=== PATIENT | male | born 1955 | race Caucasian/White ===

== ENCOUNTER 2017-03-08 18:47 | Inpatient (IN) | payer BC ==
[~2017-03-08] VITALS: Ht 165.1 cm; Wt 95.3 kg
[~2017-03-08 18:47] MED LIST: ACYCLOVIR400 MG PO; AMBIEN5 M1 PO; AREDIA IV; ATIVAN0.5 MG PO; CALCIUM CA1250 MG/5 PO; CALCIUM PO; COMPAZINE10 MG PO; CYCLOBENZAPRINE10 MG PO; CYTOXAN500 MG IV; DECADRON4 MG PO; DURAGESIC75 MCG TD; ELOCON 0.1% CRE15 GM TP; FEROSUL325 MG PO; FLUCONAZOLE100 M1 PO; FLUCONAZOLE100 MG PO; GUMMI BEAR MUL1 EACH PO; HYDROCODON-ACE1 EAC7 PO; K-DUR10 MEQ PO; KENLAOG,ARISTOC60 ML PO; LEVOTHROID,S0.125 MG PO; LEVOTHYROXINE50 MCG PO; LOVENOX40 MG/0.4 PO; LOVENOX40 MG/0.4 SC; MEDROL16 MG PO; MELATONIN5 MG SL; NEBUPENT300 MG IH; NEXIUM40 MG PO; OMEPRAZOLE20 MG PO; ONDANSETRON HCL8 MG PO; OXYCODONE5 MG PO; PAMIDRONATE IV; PERI-COLACE TA1 EACH PO; PHENERGAN12.5 M1 PO; PROVENTIL,2.5 MG/3 M IH; REVLIMID15 MG PO; THALOMID100 MG PO; VELCADE1 MG/ML IV; VITAMIN B-121000 MC1 SL; VITAMIN D5000 UNIT PO; ZOFRAN ODT8 MG PO; ZOVIRAX400 MG PO; [UNRECOGNIZED DRUG - OTHER] PO
[2017-03-08 20:39] LABS: HEMATOCRIT 31.7 % (38.0-50.0); MCHC 30.3 G/DL (30.0-36.0); MCV 95.8 FL (86-99); MEAN PLAT.VOLUME 10.7 uM^3 (9.0-12.4); NRBC (%) 0.3 /100 WBC (0-0); PLATELET COUNT 198 K/uL (156-360); RBC DIS.WIDTH-CV 18.6 % (11.8-14.6); RBC DIS.WIDTH-SD 63.4 % (39-53); RED BLOOD COUNT 3.31 M/uL (4.00-5.50)
[2017-03-08 20:53] LABS: CHLORIDE 110 mEq/L (99-109); POTASSIUM 3.5 mEq/L (3.7-5.4); SODIUM 140 mEq/L (136-147)
[2017-03-08 20:54] LABS: GLUCOSE 125 mg/dL (70-99)
[2017-03-08 20:56] LABS: INFLUENZA A VIRAL ANTIGEN NEGATIVE; INFLUENZA B VIRAL ANTIGEN NEGATIVE
[2017-03-08 20:56] LABS: ANION GAP 11 MEQ/L (2-14)
[2017-03-08 20:58] LABS: GFR ESTIMATE (CALCULATED) > 59 mL/min/
[2017-03-08 20:59] LABS: UREA NITROGEN (BUN) 19 mg/dL (9-23)
[2017-03-08 21:02] LABS: TROP-I INTERPRETATION NEGATIVE; TROPONIN-I < 0.01 ng/mL (0.0-0.30)
[2017-03-08] MEDS ORDERED: [UNRECOGNIZED DRUG - OTHER] (22:02)
[2017-03-08] MEDS ORDERED: VITAMIN D35000 UNIT PO (22:03)
[2017-03-08] MEDS ORDERED: FLEXERIL10 MG PO (22:04)
[2017-03-08] MEDS ORDERED: LOVENOX40 MG/0.4 SC (22:06)
[2017-03-08] MEDS ORDERED: CYTOXAN500 MG IV (22:06)
[2017-03-08] MEDS ORDERED: LOPERAMIDE2 MG PO (22:11)
[2017-03-08] MEDS ORDERED: MAG-OXIDE400 MG PO (22:13)
[2017-03-08] MEDS ORDERED: PERCOCET 5/31 TABLET PO (22:18)
[2017-03-08] MEDS ORDERED: POMALYST2 MG PO (22:23)
[2017-03-08] MEDS ORDERED: K-DUR10 MEQ PO (22:24)
[2017-03-08] MEDS ORDERED: COMPAZINE10 MG PO (22:25)
[2017-03-08] MEDS ORDERED: ZOLPIDEM TARTRA10 MG PO (22:26)
[2017-03-09] VITALS (21 sets, daily range): BP systolic 96–139; BP diastolic 60–90
[2017-03-09 00:45] LABS: CHLORIDE 112 mEq/L (99-109); POTASSIUM 3.4 mEq/L (3.7-5.4); SODIUM 140 mEq/L (136-147)
[2017-03-09 00:48] LABS: GLUCOSE 125 mg/dL (70-99)
[2017-03-09 00:49] LABS: ANION GAP 11 MEQ/L (2-14); TOTAL BILIRUBIN 0.4 mg/dL (0.0-1.0)
[2017-03-09 00:50] LABS: HEMATOCRIT 26.1 % (38.0-50.0); MCH 29.3 PG (29.0-34.0); MCHC 29.9 G/DL (30.0-36.0); MCV 98.1 FL (86-99); MEAN PLAT.VOLUME 10.6 uM^3 (9.0-12.4); NRBC (%) 0.8 /100 WBC (0-0); PLATELET COUNT 160 K/uL (156-360); RBC DIS.WIDTH-CV 18.7 % (11.8-14.6); RBC DIS.WIDTH-SD 65.3 % (39-53); RED BLOOD COUNT 2.66 M/uL (4.00-5.50)
[2017-03-09 00:51] LABS: ALKALINE PHOSPHATASE 37 IU/L (3-129); GFR ESTIMATE (CALCULATED) 51 mL/min/
[2017-03-09 00:52] LABS: UREA NITROGEN (BUN) 21 mg/dL (9-23)
[2017-03-09 00:55] LABS: LIPASE 18 U/L (1.0-51.0)
[2017-03-09 02:00] LABS: EOSINOPHIL (%) 2.2 % (0-5); EOSINOPHIL COUNT 0.1 K/uL (0-0.3); HEMATOLOGY COMMENT 1 SMEAR COMPATIBLE; IMMATURE GRANULOCYTE (%) 3.2 % (0.0-0.7); IMMATURE GRANULOCYTE COUNT 0.2 K/uL; INSTRUMENT ABS NEUTROPHIL CT 4.7 K/uL; LYMPHOCYTE COUNT 0.2 K/uL (1.0-2.8); MONOCYTE (%) 13.2 % (3-12); MONOCYTE COUNT 0.8 K/uL (0-0.8); NEUTROPHIL (%) 77.6 % (45-76); NEUTROPHIL COUNT 4.7 K/uL (1.8-6.4)
[2017-03-09 02:45] LABS: METH RESISTANT S AUREUS PCR NEGATIVE (NEGATIVE)
[2017-03-09 02:50] LABS: PROBE CHECK PASS; SPECIMEN PROCESSING CONTROL PASS
[2017-03-09 06:07] LABS: HEMATOCRIT 26.3 % (38.0-50.0); MCH 28.6 PG (29.0-34.0); MCHC 29.3 G/DL (30.0-36.0); MCV 97.8 FL (86-99); NRBC (%) 0.6 /100 WBC (0-0); PLATELET COUNT 140 K/uL (156-360); RBC DIS.WIDTH-SD 65.3 % (39-53); RED BLOOD COUNT 2.69 M/uL (4.00-5.50); WHITE BLOOD COUNT 4.7 K/uL (4.1-10.2)
[2017-03-09 06:36] LABS: ALKALINE PHOSPHATASE 35 IU/L (3-129); ANION GAP 8 MEQ/L (2-14); CHLORIDE 115 MEQ/L (99-109); GFR ESTIMATE (CALCULATED) 55 mL/min/; GLUCOSE 98 mg/dL (70-99); MAGNESIUM 1.7 mg/dl (1.3-2.7); SAMPLE HEMOLYSIS CHECK 0; SAMPLE ICTERIC CHECK 0; SAMPLE LIPEMIA CHECK 0; SODIUM 143 MEQ/L (136-147); TOTAL BILIRUBIN 0.5 MG/DL (0.0-1.0); UREA NITROGEN (BUN) 18 mg/dL (9-23)
[2017-03-09 06:41] LABS: POTASSIUM 4.1 MEQ/L (3.7-5.4)
[2017-03-09 08:03] LABS: EOSINOPHIL (%) 2.3 % (0-5); EOSINOPHIL COUNT 0.1 K/uL (0-0.3); HEMATOLOGY COMMENT 1 SMEAR COMPATIBLE; IMMATURE GRANULOCYTE (%) 1.3 % (0.0-0.7); IMMATURE GRANULOCYTE COUNT 0.1 K/uL; INSTRUMENT ABS NEUTROPHIL CT 3.6 K/uL; LYMPHOCYTE COUNT 0.3 K/uL (1.0-2.8); MONOCYTE (%) 11.9 % (3-12); MONOCYTE COUNT 0.6 K/uL (0-0.8); NEUTROPHIL (%) 76.9 % (45-76); NEUTROPHIL COUNT 3.6 K/uL (1.8-6.4)
[2017-03-09 09:09] LABS: ADD MIUA? NO; BILIRUBIN NEGATIVE; BLOOD NEGATIVE; COLOR YELLOW ((YELLOW)); GLUCOSE (STRIP) NEGATIVE; KETONES NEGATIVE; LEUKOCYTES NEGATIVE; NITRITE NEGATIVE; PROTEIN (STRIP) NEGATIVE; SPECIFIC GRAVITY 1.015 (1.000-1.030); UROBILINOGEN 0.2 MG/DL (0.2-1.0)
[2017-03-10] VITALS: BP 126/76
[2017-03-10 01:10] VITALS: BP 135/77
[2017-03-10 07:19] VITALS: BP 120/61
[2017-03-10 07:25] LABS: EOSINOPHIL (%) 2.6 % (0-5); EOSINOPHIL COUNT 0.1 K/uL (0-0.3); HEMATOCRIT 27.8 % (38.0-50.0); IMMATURE GRANULOCYTE (%) 0.7 % (0.0-0.7); INSTRUMENT ABS NEUTROPHIL CT 2.8 K/uL; LYMPHOCYTE COUNT 0.5 K/uL (1.0-2.8); MCH 29.2 PG (29.0-34.0); MCHC 30.2 G/DL (30.0-36.0); MCV 96.5 FL (86-99); MEAN PLAT.VOLUME 11.3 uM^3 (9.0-12.4); MONOCYTE (%) 17.5 % (3-12); MONOCYTE COUNT 0.7 K/uL (0-0.8); NEUTROPHIL (%) 66.9 % (45-76); NEUTROPHIL COUNT 2.8 K/uL (1.8-6.4); NRBC (%) 0.5 /100 WBC (0-0); PLATELET COUNT 140 K/uL (156-360); RBC DIS.WIDTH-CV 19.1 % (11.8-14.6); RBC DIS.WIDTH-SD 67.4 % (39-53); RED BLOOD COUNT 2.88 M/uL (4.00-5.50); WHITE BLOOD COUNT 4.2 K/uL (4.1-10.2)
[2017-03-10 08:41] LABS: ALKALINE PHOSPHATASE 37 IU/L (3-129); ANION GAP 8 MEQ/L (2-14); CHLORIDE 112 MEQ/L (99-109); DIRECT BILIRUBIN 0.2 mg/dL (0.0-0.3); GFR ESTIMATE (CALCULATED) > 59 mL/min/; GLUCOSE 93 mg/dL (70-99); POTASSIUM 3.8 MEQ/L (3.7-5.4); SAMPLE HEMOLYSIS CHECK 0; SAMPLE ICTERIC CHECK 0; SAMPLE LIPEMIA CHECK 0; SODIUM 140 MEQ/L (136-147); TOTAL BILIRUBIN 0.6 MG/DL (0.0-1.0); UREA NITROGEN (BUN) 14 mg/dL (9-23)
[2017-03-10 15:34] VITALS: BP 117/68
[2017-03-10 23:28] VITALS: BP 118/72
[2017-03-11 03:03] LABS: C DIFF TOXIN NEGATIVE (NEGATIVE)
[2017-03-11 03:08] LABS: PROBE CHECK PASS; SPECIMEN PROCESSING CONTROL PASS
[2017-03-11 07:20] VITALS: BP 128/85
[2017-03-11 10:23] LABS: EOSINOPHIL (%) 7.7 % (0-5); EOSINOPHIL COUNT 0.3 K/uL (0-0.3); HEMATOCRIT 28.2 % (38.0-50.0); IMMATURE GRANULOCYTE (%) 0.5 % (0.0-0.7); INSTRUMENT ABS NEUTROPHIL CT 3.4 K/uL; LYMPHOCYTE COUNT 0.2 K/uL (1.0-2.8); MCH 29.1 PG (29.0-34.0); MCHC 29.8 G/DL (30.0-36.0); MCV 97.6 FL (86-99); MEAN PLAT.VOLUME 11.1 uM^3 (9.0-12.4); MONOCYTE (%) 8.6 % (3-12); MONOCYTE COUNT 0.4 K/uL (0-0.8); NEUTROPHIL (%) 78.5 % (45-76); NEUTROPHIL COUNT 3.4 K/uL (1.8-6.4); NRBC (%) 0.5 /100 WBC (0-0); PLATELET COUNT 125 K/uL (156-360); RBC DIS.WIDTH-SD 67.6 % (39-53); RED BLOOD COUNT 2.89 M/uL (4.00-5.50); WHITE BLOOD COUNT 4.3 K/uL (4.1-10.2)
[2017-03-11 10:44] LABS: ALKALINE PHOSPHATASE 36 IU/L (3-129); ANION GAP 10 MEQ/L (2-14); CHLORIDE 113 MEQ/L (99-109); GFR ESTIMATE (CALCULATED) > 59 mL/min/; GLUCOSE 84 mg/dL (70-99); POTASSIUM 4.1 MEQ/L (3.7-5.4); SAMPLE HEMOLYSIS CHECK 0; SAMPLE ICTERIC CHECK 0; SAMPLE LIPEMIA CHECK 0; SODIUM 142 MEQ/L (136-147); TOTAL BILIRUBIN 0.6 MG/DL (0.0-1.0); UREA NITROGEN (BUN) 10 mg/dL (9-23)
[2017-03-11 16:01] VITALS: BP 129/78
[2017-03-11 23:40] VITALS: BP 121/62
[2017-03-12 06:50] LABS: EOSINOPHIL (%) 15.2 % (0-5); EOSINOPHIL COUNT 0.4 K/uL (0-0.3); HEMATOCRIT 26.1 % (38.0-50.0); INSTRUMENT ABS NEUTROPHIL CT 1.4 K/uL; LYMPHOCYTE COUNT 0.4 K/uL (1.0-2.8); MCHC 29.9 G/DL (30.0-36.0); MONOCYTE (%) 22.4 % (3-12); MONOCYTE COUNT 0.7 K/uL (0-0.8); NEUTROPHIL (%) 46.9 % (45-76); NEUTROPHIL COUNT 1.4 K/uL (1.8-6.4); PLATELET COUNT 133 K/uL (156-360); RBC DIS.WIDTH-CV 18.8 % (11.8-14.6); RBC DIS.WIDTH-SD 65.8 % (39-53); RED BLOOD COUNT 2.69 M/uL (4.00-5.50)
[2017-03-12 06:53] LABS: WHITE BLOOD COUNT 2.9 K/uL (4.1-10.2)
[2017-03-12 07:11] LABS: ALKALINE PHOSPHATASE 36 IU/L (3-129); ANION GAP 6 MEQ/L (2-14); CHLORIDE 113 MEQ/L (99-109); GFR ESTIMATE (CALCULATED) > 59 mL/min/; GLUCOSE 83 mg/dL (70-99); SAMPLE HEMOLYSIS CHECK 0; SAMPLE ICTERIC CHECK 0; SAMPLE LIPEMIA CHECK 0; SODIUM 142 MEQ/L (136-147); UREA NITROGEN (BUN) 10 mg/dL (9-23)
[2017-03-12 07:16] LABS: TOTAL BILIRUBIN 0.4 MG/DL (0.0-1.0)
[2017-03-12 07:29] VITALS: BP 133/76
[2017-03-12] MEDS ORDERED: LOPERAMIDE2 MG PO (09:55)
== END 2017-03-12 12:16 | disposition home or self-care (01) | DRG 871 ==
LOC: EME 18:47 → EDOF 03-09 00:10 → 5EAST 03-09 00:10 → 4WEST 03-09 01:12 → 5EAST 03-10 01:02
PROVIDERS: Emergency Medicine; Hospitalist; Internal Medicine Nephrology
PROC: 5A09357 Assistance with Respiratory Ventilation, Less than 24 Consecutive Hours, Continuous Positive Airway Pressure (ICD-10-PCS; principal; 2017-03-09)
DX: A41.9 Sepsis, unspecified organism (principal); R65.21 Severe sepsis with septic shock; C90.00 Multiple myeloma not having achieved remission; E87.2 Acidosis; R11.10 Vomiting, unspecified; E86.0 Dehydration; R68.83 Chills (without fever); D64.9 Anemia, unspecified; G47.33 Obstructive sleep apnea (adult) (pediatric); Z53.20 Procedure and treatment not carried out because of patient's decision for unspecified reasons; R19.7 Diarrhea, unspecified; L98.9 Disorder of the skin and subcutaneous tissue, unspecified; L53.9 Erythematous condition, unspecified; R06.02 Shortness of breath; E87.6 Hypokalemia; E03.9 Hypothyroidism, unspecified; Z92.21 Personal history of antineoplastic chemotherapy; I25.2 Old myocardial infarction; Z87.891 Personal history of nicotine dependence; Z88.8 Allergy status to other drugs, medicaments and biological substances; Z95.9 Presence of cardiac and vascular implant and graft, unspecified
CPT/HCPCS: 71020; 80048; 80053; 80076; 80202; 81003; 82803; 83605; 83690; 83735; 83880; 84100; 84484; 85025; 85027; 87040; 87086; 87493; 87502; 87506; 87641; 93005; 94640; 94660; 99281; 99285; J1650; J2405; J2543; J2997; J3370; J3475; J3480; J7030; J7050

== ENCOUNTER 2017-04-24 13:12 | Inpatient (IN) | payer BC ==
[~2017-04-24] VITALS: Ht 165.1 cm; Wt 88.9 kg
[~2017-04-24 13:12] MED LIST changes: +FLEXERIL10 MG PO; +LOPERAMIDE2 MG PO; +MAG-OXIDE400 MG PO; +PERCOCET 5/31 TABLET PO; +POMALYST2 MG PO; +VITAMIN D35000 UNIT PO; +ZOLPIDEM TARTRA10 MG PO; +[UNRECOGNIZED DRUG - OTHER]
[2017-04-24 14:28] LABS: HEMATOCRIT 40.5 % (38.0-50.0); MCH 27.7 PG (29.0-34.0); MCHC 29.6 G/DL (30.0-36.0); MCV 93.5 FL (86-99); MEAN PLAT.VOLUME 11.6 uM^3 (9.0-12.4); NRBC (%) 0.9 /100 WBC (0-0); PLATELET COUNT 213 K/uL (156-360); RBC DIS.WIDTH-CV 20.1 % (11.8-14.6); RBC DIS.WIDTH-SD 68.1 % (39-53); RED BLOOD COUNT 4.33 M/uL (4.00-5.50); WHITE BLOOD COUNT 7.6 K/uL (4.1-10.2)
[2017-04-24 14:37] LABS: CHLORIDE 111 mEq/L (99-109); POTASSIUM 3.9 mEq/L (3.7-5.4); SODIUM 141 mEq/L (136-147)
[2017-04-24 14:40] LABS: GLUCOSE 138 mg/dL (70-99)
[2017-04-24 14:41] LABS: ANION GAP 16 MEQ/L (2-14)
[2017-04-24 14:42] LABS: TOTAL BILIRUBIN 0.9 mg/dL (0.0-1.0)
[2017-04-24 14:43] LABS: ALKALINE PHOSPHATASE 62 IU/L (3-129); GFR ESTIMATE (CALCULATED) > 59 mL/min/
[2017-04-24 14:45] LABS: UREA NITROGEN (BUN) 19 mg/dL (9-23)
[2017-04-24 14:47] LABS: CREATINE KINASE 81 IU/L (1-294); LIPASE 27 U/L (1.0-51.0); TOTAL CK 81 IU/L (1-294)
[2017-04-24 14:53] LABS: CK-MB 1.7 ng/mL (0.0-4.9)
[2017-04-24 16:35] LABS: ADD MIUA? YES; BILIRUBIN NEGATIVE; BLOOD NEGATIVE; COLOR YELLOW ((YELLOW)); GLUCOSE (STRIP) 150; KETONES NEGATIVE; LEUKOCYTES NEGATIVE; NITRITE NEGATIVE; PROTEIN (STRIP) 100; SPECIFIC GRAVITY 1.024 (1.000-1.030); UROBILINOGEN 0.2 MG/DL (0.2-1.0)
[2017-04-24] MEDS ORDERED: LOMOTIL TABLET1 EACH PO (16:44)
[2017-04-24 16:45] LABS: BACTERIA NONE SEEN /HPF; EPITHELIAL CELLS RARE /HPF; HYALINE CASTS 15-20 /LPF; MUCUS 2+ /LPF; RED BLOOD CELLS 0-5 /HPF (0-5); UCUL ADDED? NO; WHITE BLOOD CELLS 0-5 /HPF (0-5)
[2017-04-24] MEDS ORDERED: CALCIUM 500 MG1 EAC2 PO (16:48)
[2017-04-24] MEDS ORDERED: MIRALAX255 GM PO (16:49)
[2017-04-24 19:35] VITALS: BP 130/81
[2017-04-24 22:29] LABS: C DIFF TOXIN NEGATIVE (NEGATIVE)
[2017-04-24 22:33] LABS: PROBE CHECK PASS; SPECIMEN PROCESSING CONTROL PASS
[2017-04-24 23:07] VITALS: BP 120/76
[2017-04-25 04:06] VITALS: BP 120/83
[2017-04-25 07:38] LABS: ANION GAP 10 MEQ/L (2-14); CHLORIDE 108 MEQ/L (99-109); GFR ESTIMATE (CALCULATED) > 59 mL/min/; POTASSIUM 3.7 MEQ/L (3.7-5.4); SAMPLE HEMOLYSIS CHECK 0; SAMPLE ICTERIC CHECK 0; SAMPLE LIPEMIA CHECK 0; SODIUM 137 MEQ/L (136-147); UREA NITROGEN (BUN) 18 mg/dL (9-23)
[2017-04-25 07:39] LABS: GLUCOSE 100 mg/dL (70-99)
[2017-04-25 08:10] VITALS: BP 130/83
[2017-04-25 16:34] LABS: ANION GAP 7 MEQ/L (2-14); CHLORIDE 107 MEQ/L (99-109); GFR ESTIMATE (CALCULATED) > 59 mL/min/; GLUCOSE 97 mg/dL (70-99); POTASSIUM 3.5 MEQ/L (3.7-5.4); SAMPLE HEMOLYSIS CHECK 0; SAMPLE ICTERIC CHECK 0; SAMPLE LIPEMIA CHECK 0; SODIUM 135 MEQ/L (136-147); UREA NITROGEN (BUN) 14 mg/dL (9-23)
[2017-04-25 17:50] VITALS: BP 122/75
[2017-04-25 22:51] LABS: ANION GAP 12 MEQ/L (2-14); CHLORIDE 107 MEQ/L (99-109); MAGNESIUM 1.8 mg/dl (1.3-2.7); POTASSIUM 3.3 MEQ/L (3.7-5.4); SAMPLE HEMOLYSIS CHECK 0; SAMPLE ICTERIC CHECK 0; SAMPLE LIPEMIA CHECK 0; SODIUM 135 MEQ/L (136-147)
[2017-04-25 22:56] LABS: GFR ESTIMATE (CALCULATED) > 59 mL/min/; GLUCOSE 120 mg/dL (70-99); UREA NITROGEN (BUN) 14 mg/dL (9-23)
[2017-04-25 23:10] VITALS: BP 128/77
[2017-04-26 03:49] VITALS: BP 126/78
[2017-04-26 06:45] VITALS: BP 120/82
[2017-04-26 06:55] LABS: HEMATOCRIT 30.8 % (38.0-50.0); MCH 28.7 PG (29.0-34.0); MCHC 31.2 G/DL (30.0-36.0); MCV 91.9 FL (86-99); RBC DIS.WIDTH-CV 20.1 % (11.8-14.6); RBC DIS.WIDTH-SD 68.6 % (39-53); WHITE BLOOD COUNT 2.1 K/uL (4.1-10.2)
[2017-04-26 06:56] LABS: RED BLOOD COUNT 3.35 M/uL (4.00-5.50)
[2017-04-26 06:59] LABS: ANION GAP 9 MEQ/L (2-14); CHLORIDE 110 MEQ/L (99-109); GFR ESTIMATE (CALCULATED) > 59 mL/min/; GLUCOSE 112 mg/dL (70-99); POTASSIUM 3.3 MEQ/L (3.7-5.4); SAMPLE HEMOLYSIS CHECK 0; SAMPLE ICTERIC CHECK 0; SAMPLE LIPEMIA CHECK 0; SODIUM 136 MEQ/L (136-147); UREA NITROGEN (BUN) 13 mg/dL (9-23)
[2017-04-26 07:30] LABS: EOSINOPHIL (%) 0 % (0-5); IMMATURE GRANULOCYTE (%) 0.9 % (0.0-0.7); INSTRUMENT ABS NEUTROPHIL CT 1.5 K/uL; LYMPHOCYTE COUNT 0.2 K/uL (1.0-2.8); MEAN PLAT.VOLUME 10.9 uM^3 (9.0-12.4); MONOCYTE (%) 17.4 % (3-12); MONOCYTE COUNT 0.4 K/uL (0-0.8); NEUTROPHIL (%) 70.9 % (45-76); NEUTROPHIL COUNT 1.5 K/uL (1.8-6.4)
[2017-04-26 07:34] LABS: PLATELET COUNT 144 K/uL (156-360)
[2017-04-26 09:31] LABS: INTERNAL CONTROL VALID? YES
[2017-04-26 11:30] VITALS: BP 127/78
[2017-04-26 15:40] VITALS: BP 117/73
[2017-04-26 20:20] VITALS: BP 135/88
[2017-04-27] VITALS: BP 134/76
[2017-04-27 03:37] VITALS: BP 133/80
[2017-04-27 07:10] LABS: HEMATOCRIT 31.6 % (38.0-50.0); MCH 28.1 PG (29.0-34.0); MCHC 29.7 G/DL (30.0-36.0); MCV 94.6 FL (86-99); MEAN PLAT.VOLUME 11.3 uM^3 (9.0-12.4); PLATELET COUNT 149 K/uL (156-360); RBC DIS.WIDTH-CV 19.9 % (11.8-14.6); RBC DIS.WIDTH-SD 68.3 % (39-53); RED BLOOD COUNT 3.34 M/uL (4.00-5.50)
[2017-04-27 07:34] LABS: ANION GAP 8 MEQ/L (2-14); CHLORIDE 114 MEQ/L (99-109); GFR ESTIMATE (CALCULATED) > 59 mL/min/; GLUCOSE 100 mg/dL (70-99); POTASSIUM 3.6 MEQ/L (3.7-5.4); SAMPLE HEMOLYSIS CHECK 0; SAMPLE ICTERIC CHECK 0; SAMPLE LIPEMIA CHECK 0; SODIUM 139 MEQ/L (136-147); UREA NITROGEN (BUN) 14 mg/dL (9-23)
[2017-04-27 07:48] VITALS: BP 130/74
[2017-04-27 08:40] LABS: EOSINOPHIL (%) 3.9 % (0-5); EOSINOPHIL COUNT 0.1 K/uL (0-0.3); HEMATOLOGY COMMENT 1 SMEAR COMPATIBLE; INSTRUMENT ABS NEUTROPHIL CT 1.1 K/uL; LYMPHOCYTE COUNT 0.5 K/uL (1.0-2.8); MONOCYTE (%) 19.6 % (3-12); MONOCYTE COUNT 0.4 K/uL (0-0.8); NEUTROPHIL (%) 52.4 % (45-76); NEUTROPHIL COUNT 1.1 K/uL (1.8-6.4)
[2017-04-27 16:41] VITALS: BP 116/71
[2017-04-27 23:20] VITALS: BP 119/79
[2017-04-28 06:59] LABS: HEMATOCRIT 28.8 % (38.0-50.0); MCH 28.8 PG (29.0-34.0); MCHC 31.3 G/DL (30.0-36.0); MCV 92.3 FL (86-99); MEAN PLAT.VOLUME 10.4 uM^3 (9.0-12.4); PLATELET COUNT 142 K/uL (156-360); RBC DIS.WIDTH-CV 20.2 % (11.8-14.6); RED BLOOD COUNT 3.12 M/uL (4.00-5.50); WHITE BLOOD COUNT 2.2 K/uL (4.1-10.2)
[2017-04-28 07:23] VITALS: BP 112/68
[2017-04-28 07:25] LABS: ANION GAP 8 MEQ/L (2-14); CHLORIDE 114 MEQ/L (99-109); GFR ESTIMATE (CALCULATED) > 59 mL/min/; GLUCOSE 92 mg/dL (70-99); SAMPLE HEMOLYSIS CHECK 0; SAMPLE ICTERIC CHECK 0; SAMPLE LIPEMIA CHECK 0; SODIUM 140 MEQ/L (136-147); UREA NITROGEN (BUN) 12 mg/dL (9-23)
[2017-04-28] MEDS ORDERED: ONDANSETRON HCL8 MG PO (12:38)
[2017-04-28] MEDS ORDERED: K-DUR10 MEQ PO (12:39)
== END 2017-04-28 14:44 | disposition home or self-care (01) | DRG 917 ==
LOC: EME 13:12 → 5EAST 16:12 → EDOF 16:12 → 5EAST 19:14
PROVIDERS: Hospitalist; Internal Medicine
DX: T62.91XA Toxic effect of unspecified noxious substance eaten as food, accidental (unintentional), initial encounter (principal); E86.0 Dehydration; A08.4 Viral intestinal infection, unspecified; I95.9 Hypotension, unspecified; E87.2 Acidosis; D61.810 Antineoplastic chemotherapy induced pancytopenia; T45.1X5A Adverse effect of antineoplastic and immunosuppressive drugs, initial encounter; C90.00 Multiple myeloma not having achieved remission; E87.6 Hypokalemia; E66.9 Obesity, unspecified; Z68.32 Body mass index [BMI] 32.0-32.9, adult; E03.9 Hypothyroidism, unspecified; I25.2 Old myocardial infarction; Z87.891 Personal history of nicotine dependence; Z94.84 Stem cells transplant status; Z90.81 Acquired absence of spleen; E83.39 Other disorders of phosphorus metabolism
CPT/HCPCS: 80048; 80048 91; 80053; 80069; 81003; 82550; 82553; 83630; 83690; 83735; 84100; 85025; 85027; 87015 90; 87177; 87206; 87207 90; 87329; 87493; 87506; 99202; 99281; 99285; C9113; G0378; J1650; J2270; J2354; J2405; J3480; J7030; J7050; J7120; J7509

== ENCOUNTER 2017-09-07 13:41 | Observation (INO) | payer BC ==
[~2017-09-07] VITALS: Ht 165.1 cm; Wt 92.0 kg
[~2017-09-07 13:41] MED LIST changes: +CALCIUM 500 MG1 EAC2 PO; +LOMOTIL TABLET1 EACH PO; +MIRALAX255 GM PO
[2017-09-07 14:36] LABS: HEMATOCRIT 30.6 % (38.0-50.0); MCH 26.9 PG (29.0-34.0); MCHC 29.4 G/DL (30.0-36.0); MCV 91.6 FL (86-99); MEAN PLAT.VOLUME 10.8 uM^3 (9.0-12.4); PLATELET COUNT 258 K/uL (156-360); RBC DIS.WIDTH-CV 19.9 % (11.8-14.6); RBC DIS.WIDTH-SD 66.4 % (39-53); RED BLOOD COUNT 3.34 M/uL (4.00-5.50); WHITE BLOOD COUNT 5.8 K/uL (4.1-10.2)
[2017-09-07 14:44] LABS: CHLORIDE 111 mEq/L (99-109)
[2017-09-07 14:45] LABS: INTER. NORMALIZED RATIO 1.1; POTASSIUM 3.7 mEq/L (3.7-5.4); PROTHROMBIN TIME 11.8 SEC (10.2-12.9); SODIUM 142 mEq/L (136-147)
[2017-09-07 14:46] LABS: GLUCOSE 92 mg/dL (70-99)
[2017-09-07 14:48] LABS: ANION GAP 12 MEQ/L (2-14); PTT 23.1 SEC (25-37)
[2017-09-07 14:50] LABS: GFR ESTIMATE (CALCULATED) > 59 mL/min/
[2017-09-07 14:51] LABS: UREA NITROGEN (BUN) 10 mg/dL (9-23)
[2017-09-07] MEDS ORDERED: K-TAB10 MEQ PO (19:23)
[2017-09-07] MEDS ORDERED: MEDROL4 MG PO (19:39)
[2017-09-07] MEDS ORDERED: LORAZEPAM1 MG PO (19:47)
[2017-09-07] MEDS ORDERED: HORIZANT600 MG PO (19:51)
[2017-09-07] MEDS ORDERED: OMNIPRED10 ML RIGHT EYE (19:51)
[2017-09-07 22:17] VITALS: BP 131/71
[2017-09-07 22:56] LABS: MCV 91.7 FL (86-99)
[2017-09-08 04:28] VITALS: BP 110/57
[2017-09-08 05:42] LABS: HEMATOCRIT 28.2 % (38.0-50.0); MCHC 28.4 G/DL (30.0-36.0); MCV 91.6 FL (86-99); MEAN PLAT.VOLUME 10.8 uM^3 (9.0-12.4); PLATELET COUNT 259 K/uL (156-360); RBC DIS.WIDTH-CV 19.9 % (11.8-14.6); RED BLOOD COUNT 3.08 M/uL (4.00-5.50); WHITE BLOOD COUNT 4.4 K/uL (4.1-10.2)
[2017-09-08 06:48] LABS: ANION GAP 8 MEQ/L (2-14); CHLORIDE 113 MEQ/L (99-109); GFR ESTIMATE (CALCULATED) > 59 mL/min/; GLUCOSE 83 mg/dL (70-99); POTASSIUM 3.9 MEQ/L (3.7-5.4); SAMPLE HEMOLYSIS CHECK 0; SAMPLE ICTERIC CHECK 0; SAMPLE LIPEMIA CHECK 0; SODIUM 143 MEQ/L (136-147); UREA NITROGEN (BUN) 9 mg/dL (9-23)
[2017-09-08 07:44] VITALS: BP 117/61
[2017-09-08 10:52] VITALS: BP 115/69
[2017-09-08 10:58] LABS: HEMATOCRIT 30.2 % (38.0-50.0); MCV 92.4 FL (86-99)
== END 2017-09-08 13:32 | disposition home or self-care (01) ==
LOC: EME 13:41 → EDOF 18:48 → 5WEST 18:48 → ENRESERV 18:51 → 5WEST 22:17 → ENPENDDIS 09-08 → 5WEST 09-08 13:32
PROVIDERS: Emergency Medicine; Hospitalist; Physician Assistant Medical
DX: K91.840 Postprocedural hemorrhage of a digestive system organ or structure following a digestive system procedure (principal); Y83.8 Other surgical procedures as the cause of abnormal reaction of the patient, or of later complication, without mention of misadventure at the time of the procedure; K62.5 Hemorrhage of anus and rectum; Z86.010 Personal history of colon polyps; C90.00 Multiple myeloma not having achieved remission; D64.9 Anemia, unspecified; I25.10 Atherosclerotic heart disease of native coronary artery without angina pectoris; I25.2 Old myocardial infarction; Z94.81 Bone marrow transplant status; Z79.52 Long term (current) use of systemic steroids; Z79.899 Other long term (current) drug therapy; Z87.891 Personal history of nicotine dependence; Z90.49 Acquired absence of other specified parts of digestive tract; Z82.49 Family history of ischemic heart disease and other diseases of the circulatory system
CPT/HCPCS: 74020; 80048; 85014; 85018; 85027; 85610; 85730; 99281; 99285; G0378; J7030